=== PATIENT | male | born 1945 | race Caucasian/White ===

== ENCOUNTER 2017-10-27 14:20 | Emergency (ER) | payer MEDICARE, OTHER ==
--- NOTE | 2017-10-27 14:28 | EDM.PDOC ---
ED HPI GENERAL MEDICAL PROBLEM - General Chief Complaint: Lower Extremity Injury/Pain Stated Complaint: KNEE INJURY, [id number] Time Seen by Provider: 10/27/17 14:28 Source of Information: Reports: Patient, RN, RN Notes Reviewed History Limitations: Reports: No Limitations - History of Present Illness INITIAL COMMENTS - FREE TEXT/NARRATIVE: Arrives by POV with c/o of Rt knee pain sustained [employer] when pt slipped on the ice while shoveling snow. Denies hitting his head, and denies any other injury. Onset: Today, Sudden Duration: Constant Location: Reports: Lower Extremity, Right Quality: Reports: Ache Severity: Moderate Improves with: Reports: None Worsens with: Reports: Movement Associated Symptoms: Reports: No Other Symptoms Right Knee Pain Score (Numeric/FACES): 2 - Related Data Allergies Allergy/AdvReac Type Severity Reaction Status Date / Time naproxen sodium [From Aleve] Allergy Rash Verified 12/24/14 09:15 Home Meds: Home Meds Levothyroxine 150 mcg PO DAILY 12/24/14 [History] Sulfamethoxazole/Trimethoprim [Septra DS] 1 tab PO DAILY 12/24/14 [History] amLODIPine Besylate [Amlodipine Besylate] 5 mg PO DAILY 12/24/14 [History] atorvaSTATin Calcium [Atorvastatin Calcium] 40 mg PO BEDTIME 10/27/17 [History] Past Medical History Cardiovascular History: Reports: High Cholesterol, Hypertension Musculoskeletal History: Reports: Osteoarthritis, Other (See Below) ( postoperative Rt knee infection s/p TKR) Endocrine/Metabolic History: Reports: Hypothyroidism, Obesity/BMI 30+ - Past Surgical History Musculoskeletal Surgical History: Reports: Knee Replacement (Rt x2, Left x1), ORIF (ankle) Social & Family History - Family History Family Medical History: Noncontributory - Tobacco Use Smoking Status *Q: Never Smoker Second Hand Smoke Exposure: No - Alcohol Use Days Per Week of Alcohol Use: 0 - Recreational Drug Use Recreational Drug Use: No - Living Situation & Occupation Living situation: Reports: , with Spouse Occupation: Retired Review of Systems - Review of Systems Review Of Systems: ROS reveals no pertinent complaints other than HPI. ED EXAM, GENERAL - Physical Exam Exam: See Below Exam Limited By: No Limitations General Appearance: Alert, WD/WN, No Apparent Distress Head: Atraumatic, Normocephalic Neck: Normal Inspection Respiratory/Chest: No Respiratory Distress Cardiovascular: Normal Peripheral Pulses, Regular Rate, Rhythm GI/Abdominal: Normal Bowel Sounds, Soft, Non-Tender, No Distention (Male) Exam: Deferred Rectal (Males) Exam: Deferred Back Exam: Normal Inspection, Full Range of Motion Extremities: Normal Capillary Refill, Pedal Edema (chronic/stable per pt.), Limited Range of Motion (Rt knee with mild generalized swelling, no increased warmth, no erythema, no visible bruising or deformity, skin is intact) Neurological: Alert, Oriented, CN II-XII Intact, Normal Cognition, No Motor/ Sensory Deficits Psychiatric: Normal Affect, Normal Mood Skin Exam: Warm, Dry, Intact, Normal Color, No Rash ED TRAUMA EXTREMITY PROCEDURES - Splinting Right Lower Extremity Splint Site: Rt knee Pre-Procedure NV Status: Normal Post-Procedure NV Status: Normal Splint Material: Velcro Splint Design: Knee Immobilizer Applied & Form Fitted By: Nurse Provider Post-Splint Application NV Check: NV Status Normal, Good Position Complications: No Course - Vital Signs Last Recorded V/S: Last Vital Signs Temp 36.8 C 10/27/17 14:33 Pulse 66 10/27/17 14:33 Resp 18 10/27/17 14:33 BP 139/71 10/27/17 14:33 Pulse Ox 100 10/27/17 14:33 - Orders/Labs/Meds Orders: Active Orders 24 hr Category Date Time Status Immobilizer [RC] ASDIRECTED Care 10/27/17 14:57 Active Peripheral IV Care [RC] . DIRECTED Care 10/27/17 15:48 Active Femur Min 2V Rt [CR] Stat Exams 10/27/17 15:44 Ordered Hip Min 2V or 3V w Pelvis Rt [CR] Stat Exams 10/27/17 14:38 Stop Req Sodium Chloride 0.9% [Saline Flush] Med 10/27/17 15:48 Active 10 ml FLUSH ASDIRECTED PRN Peripheral IV Insertion Adult [OM.PC] Stat Oth 10/27/17 15:47 Ordered Medication Orders Sodium Chloride (Saline Flush) 10 ml FLUSH ASDIRECTED PRN PRN Reason: Keep Vein Open Meds: Medications Generic Name Dose Route Start Last Admin Trade Name Freq PRN Reason Stop Dose Admin Sodium Chloride 10 ml 10/27/17 15:48 Saline Flush FLUSH ASDIRECTED PRN Keep Vein Open Discontinued Medications Generic Name Dose Route Start Last Admin Trade Name Elioq PRN Reason Stop Dose Admin Hydromorphone HCl 1 mg 10/27/17 15:48 Dilaudid IVPUSH 10/27/17 15:49 ONETIME ONE Ondansetron HCl 4 mg 10/27/17 15:48 Zofran IV 10/27/17 15:49 ONETIME ONE Departure - Departure Time of Disposition: 15:53 Disposition: DC/Tfer to Acute Hospital 02 Condition: Fair Clinical Impression: [place]-prosthetic fracture around prosthetic knee Qualifiers: Encounter type: initial encounter Laterality: right Qualified Code(s): M97.11XA - Periprosthetic fracture around internal prosthetic right knee joint, initial encounter; T84.042A - Periprosthetic fracture around internal prosthetic right knee joint, initial encounter Closed fracture of distal end of right femur Qualifiers: Encounter type: initial encounter Fracture morphology: other fracture Qualified Code(s): S72.491A - Other fracture of lower end of right femur, initial encounter for closed fracture - Discharge Information Forms: ED Department Discharge, Interfacility Transfer EMTALA - My Orders Last 24 Hours: My Active Orders 10/27/17 14:38 Hip Min 2V or 3V w Pelvis Rt [CR] Stat 10/27/17 14:57 Immobilizer [RC] ASDIRECTED 10/27/17 15:44 Femur Min 2V Rt [CR] Stat 10/27/17 15:47 Peripheral IV Insertion Adult [OM.PC] Stat 10/27/17 15:48 Peripheral IV Care [RC] . DIRECTED Sodium Chloride 0.9% [Saline Flush] 10 ml FLUSH ASDIRECTED PRN - Assessment/Plan Last 24 Hours: My Active Orders 10/27/17 14:38 Hip Min 2V or 3V w Pelvis Rt [CR] Stat 10/27/17 14:57 Immobilizer [RC] ASDIRECTED 10/27/17 15:44 Femur Min 2V Rt [CR] Stat 10/27/17 15:47 Peripheral IV Insertion Adult [OM.PC] Stat 10/27/17 15:48 Peripheral IV Care [RC] . DIRECTED Sodium Chloride 0.9% [Saline Flush] 10 ml FLUSH ASDIRECTED PRN
[2017-10-27] MEDS ORDERED: Sodium Chloride 0.9% 10 ML Syringe FLUSH PRN (15:48)
[2017-10-27] MEDS ORDERED: HYDROmorphone 1 MG/ML Syringe IVPUSH ONE (15:48)
[2017-10-27] MEDS ORDERED: Ondansetron 4 MG/2 ML SDV IV ONE (15:48)
[2017-10-27 15:52] VITALS: BP 150/80
== END 2017-10-27 16:20 ==
LOC: DL.ED 14:20
DX: S72.491A Other fracture of lower end of right femur, initial encounter for closed fracture (principal); M97.11XA Periprosthetic fracture around internal prosthetic right knee joint, initial encounter; I10 Essential (primary) hypertension; E78.00 Pure hypercholesterolemia, unspecified; E03.9 Hypothyroidism, unspecified; Z79.899 Other long term (current) drug therapy; Z88.8 Allergy status to other drugs, medicaments and biological substances; Z96.653 Presence of artificial knee joint, bilateral; W18.49XA Other slipping, tripping and stumbling without falling, initial encounter; Y93.H1 Activity, digging, shoveling and raking
CPT/HCPCS: 73552; 73560; 96374; 96375; 99283; J1170; J2405; J7050

== ENCOUNTER 2018-11-16 08:50 | Emergency (ER) | payer MEDICARE, OTHER ==
--- NOTE | 2018-11-16 09:08 | EDM.PDOC ---
ED HPI GENERAL MEDICAL PROBLEM - General Chief Complaint: Back Pain or Injury Stated Complaint: FELL ON ICE,HURT RIBS [id number] Time Seen by Provider: 11/16/18 09:07 Source of Information: Reports: Patient, RN, RN Notes Reviewed History Limitations: Reports: No Limitations - History of Present Illness INITIAL COMMENTS - FREE TEXT/NARRATIVE: Pt presents to ER from home by POV with c/o left rib pain sustained 3 days ago when he fell on the ice. Denies any other injury. No fevers or chills. Admits to mild dry cough. Onset Date: 11/13/18 Duration: Constant Location: Reports: Chest Quality: Reports: Ache Severity: Severe Improves with: Reports: None Worsens with: Reports: None Associated Symptoms: Reports: No Other Symptoms - Related Data Allergies Allergy/AdvReac Type Severity Reaction Status Date / Time naproxen sodium [From Aleve] Allergy Rash Verified 09/01/18 08:36 Home Meds: Home Meds Levothyroxine 150 mcg PO DAILY 12/24/14 [History] amLODIPine Besylate [Amlodipine Besylate] 5 mg PO DAILY 12/24/14 [History] atorvaSTATin Calcium [Atorvastatin Calcium] 40 mg PO BEDTIME 10/27/17 [History] Past Medical History HEENT History: Reports: Impaired Vision Other HEENT History: Impaired vision to right eye, cannot see out of right eye. Wears glasses. Cardiovascular History: Reports: High Cholesterol, Hypertension Respiratory History: Reports: None Gastrointestinal History: Reports: None Genitourinary History: Reports: None Musculoskeletal History: Reports: Osteoarthritis, Other (See Below) ( postoperative Rt knee infection s/p TKR) Neurological History: Reports: None Psychiatric History: Reports: None Endocrine/Metabolic History: Reports: Hypothyroidism, Obesity/BMI 30+ Other Endocrine/Metabolic History: left ankle fusion Hematologic History: Reports: Blood Transfusion(s) Other Hematologic History: years ago Immunologic History: Reports: None Oncologic (Cancer) History: Reports: Lymphoma Dermatologic History: Reports: Eczema - Past Surgical History Musculoskeletal Surgical History: Reports: Knee Replacement (Rt x2, Left x1), ORIF (ankle) Social & Family History - Family History Family Medical History: Noncontributory - Tobacco Use Smoking Status *Q: Never Smoker - Alcohol Use Alcohol Use History: Yes Alcohol Use Frequency: Socially - Living Situation & Occupation Living situation: Reports: , with Spouse Occupation: Retired ED ROS GENERAL - Review of Systems Review Of Systems: ROS reveals no pertinent complaints other than HPI. ED EXAM, GENERAL - Physical Exam Exam: See Below Exam Limited By: No Limitations General Appearance: Alert, WD/WN, No Apparent Distress Throat/Mouth: Normal Inspection Head: Atraumatic, Normocephalic Neck: Normal Inspection, Supple, Non-Tender, Full Range of Motion Respiratory/Chest: No Respiratory Distress, No Accessory Muscle Use, Decreased Breath Sounds (diminished at left base), Splinting (left), Other (left lateral lower chest wall tenderness without visible bruising, swelling, or deformity, no palpable sonia crepitus). No: Crackles, Rales, Rhonchi, Wheezing Cardiovascular: Regular Rate, Rhythm GI/Abdominal: Normal Bowel Sounds, Soft, Non-Tender Back Exam: Normal Inspection. No: CVA Tenderness (L), CVA Tenderness (R) Extremities: Normal Inspection, Normal Range of Motion Neurological: Alert, Oriented, No Motor/Sensory Deficits Psychiatric: Normal Mood Skin Exam: Warm, Dry, Intact, Normal Color, No Rash Course - Vital Signs Last Recorded V/S: Last Vital Signs Temp 36.9 C 11/16/18 08:57 Pulse 75 11/16/18 08:57 Resp 18 11/16/18 08:57 BP 145/69 H 11/16/18 08:57 Pulse Ox 97 11/16/18 08:57 - Orders/Labs/Meds Orders: Active Orders 24 hr Category Date Time Status Incentive Breathing [RT Incentive Spirometry] [RC] Care 11/16/18 09:41 Active ASDIRECTED - Radiology Interpretation Free Text/Narrative:: XR Left ribs: no obvious fractures, small pleural effusion at left base. Departure - Departure Time of Disposition: 09:41 Disposition: Home, Self-Care 01 Condition: Good Clinical Impression: Pleural effusion, left Chest wall contusion Qualifiers: Encounter type: initial encounter Laterality: left Qualified Code(s): S20.212A - Contusion of left front wall of thorax, initial encounter - Discharge Information *PRESCRIPTION DRUG MONITORING PROGRAM REVIEWED*: Not Applicable *COPY OF PRESCRIPTION DRUG MONITORING REPORT IN PATIENT MARIBELL: Not Applicable Instructions: Pleural Effusion, Rib Contusion Forms: ED Department Discharge Additional Instructions: Use incentive spirometer every hour while awake as instructed by the respiratory therapist. Ice packs to area of rib pain as needed. Follow up in clinic if not improving as expected in the next 10 days. Return to ER if any fevers or difficulty breathing develop. - My Orders Last 24 Hours: My Active Orders 11/16/18 09:41 Incentive Breathing [RT Incentive Spirometry] [RC] ASDIRECTED - Assessment/Plan Last 24 Hours: My Active Orders 11/16/18 09:41 Incentive Breathing [RT Incentive Spirometry] [RC] ASDIRECTED
--- NOTE | 2018-11-16 09:26 | CR ---
Clinical history: 73-year-old male left "rib pain" associated with fall (abnormal breath sounds on the left). Interpretation: PA chest and 2 oblique left rib detail films confirm some *new blunting (effusion) left costophrenic sulcus with underlying atelectasis since 01 September 2018 film. No rib fracture clearly seen although this remains a distinct differential possibility. No pneumothorax. Normal cardiac silhouette without cephalization of vascular flow or alveolar edema in the right lung bases clear. (Supraclavicular central venous line unchanged) No new lung mass or other focal lobar consolidation. 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 Scoliosis and hypertrophic arthritis spine. CONCLUSION: Suspicious.
[2018-11-16 09:35] VITALS: BP 145/69
== END 2018-11-16 09:55 | disposition home or self-care (01) ==
LOC: DL.ED 08:50
DX: S20.212A Contusion of left front wall of thorax, initial encounter (principal); J90 Pleural effusion, not elsewhere classified; I10 Essential (primary) hypertension; Z88.8 Allergy status to other drugs, medicaments and biological substances; E78.00 Pure hypercholesterolemia, unspecified; W00.0XXA Fall on same level due to ice and snow, initial encounter
CPT/HCPCS: 71101-LT; 94010; 99283

== ENCOUNTER 2019-08-07 06:17 | Day surgery (SDC) | payer MEDICARE, OTHER ==
[~2019-08-07 06:17] MED LIST: Midazolam 1 MG/ML 2 ML SDV ONE; fentaNYL 100 MCG/2 ML SDV ONE
[2019-08-07] MEDS ORDERED: fentaNYL 100 MCG/2 ML SDV IV ONE ×3 (06:18→07:41)
[2019-08-07] MEDS ORDERED: Midazolam 1 MG/ML 2 ML SDV IV ONE ×5 (06:18→07:46)
[2019-08-07] MEDS ORDERED: Sodium Chloride 0.9% 10 ML Syringe FLUSH PRN (08:00)
[2019-08-07] MEDS ORDERED: Dextrose 5%-0.45% NaCl 1,000 ML IV SCH (08:00)
[2019-08-07 10:13] VITALS: BP 143/73; PULSE 57
--- NOTE | 2019-08-07 14:03 | OR ---
DATE: 08/07/2019 PROCEDURE: Total colonoscopy. INSTRUMENT USED: [id number]-[id number] Olympus video colonoscope. PREMEDICATIONS: Fentanyl 100 mcg intravenous, Versed 3 mg intravenous, nasal O2 cannula. The procedure was done under pulse oximetry, BP recording, and communications systems engineer. INDICATION: Screening colonoscopic examination is done for detection of any polypoid lesions and removal, endoscopic hemostasis therapy if needed. DESCRIPTION OF PROCEDURE: Initial rectal exam was unremarkable. Rigid anoscopy showed small internal hemorrhoids without bleeding from them. The colonoscope was passed with ease. Numerous scattered diverticula were noted in the distal left colon along with deformity. The scope was passed with ease to the ileocecal area. Photographs were taken of the normal-appearing cecum, identified by landmarks of appendiceal orifice and double-bulged ileocecal folds. No bleeding was noted from any of the visualized areas at the commencement of the examination. The bowel preparation was found to be adequate, Rowlett scale 2 in all the regions. No stricture, no vascular ectasia, no large isolated ulcerations seen. No evidence of diffuse inflammatory bowel disease in the form of friability, contact bleeding, or ulcerations. No polyp or tumor mass identified. Probing the proximal sides of folds and flexures using adequate distention and clearing of the stool material, withdrawal of the scope was made, cecum to rectum time over 6 minutes. No bleeding was noted from any of the visualized areas at the completion of examination. IMPRESSION: 1. Internal hemorrhoids. 2. Diverticulosis. The patient tolerated the procedure well. [facility] /[id number]
== END 2019-08-07 09:51 | disposition home or self-care (01) ==
LOC: DL.ENDO 06:17
PROVIDERS: ATTEND Internal Medicine Gastroenterology
DX: Z12.11 Encounter for screening for malignant neoplasm of colon (principal); K57.30 Diverticulosis of large intestine without perforation or abscess without bleeding; K64.8 Other hemorrhoids; K21.9 Gastro-esophageal reflux disease without esophagitis; I10 Essential (primary) hypertension; E78.00 Pure hypercholesterolemia, unspecified; E03.9 Hypothyroidism, unspecified; E66.09 Other obesity due to excess calories; Z68.33 Body mass index [BMI] 33.0-33.9, adult; Z88.6 Allergy status to analgesic agent; Z91.048 Other nonmedicinal substance allergy status
CPT/HCPCS: G0121; J2250; J3010; J7042

== ENCOUNTER 2020-01-10 05:50 | Day surgery (SDC) | payer MEDICARE, OTHER ==
[2020-01-10] MEDS ORDERED: Propofol 200 MG/20 ML SDV IV ONE (05:51)
[2020-01-10] MEDS ORDERED: Lidocaine 1% 30 ML SDV INJECT ONE ×4 (05:51→07:58)
[2020-01-10] MEDS ORDERED: Bupivacaine 0.5% 30 ML SDV INJECT ONE ×4 (05:51→07:58)
[2020-01-10] MEDS ORDERED: Midazolam 1 MG/ML 2 ML SDV IV ONE (05:51)
[2020-01-10] MEDS ORDERED: fentaNYL 100 MCG/2 ML SDV IV ONE (05:51)
[2020-01-10] MEDS ORDERED: Ondansetron 4 MG/2 ML SDV IV ONE (05:51)
[2020-01-10] MEDS ORDERED: Lidocaine 1% 30 ML SDV ONE (06:18)
[2020-01-10] MEDS ORDERED: Bupivacaine 0.5% 30 ML SDV ONE (06:18)
[2020-01-10] MEDS ORDERED: Sodium Chloride 0.9% 10 ML Syringe FLUSH PRN (06:44)
[2020-01-10] MEDS ORDERED: ceFAZolin 2 GM in Premix Bag 1 BAG IV ONE (06:44)
[2020-01-10] MEDS ORDERED: Lactated Ringers 1,000 ML IV SCH (06:45)
[2020-01-10] MEDS ORDERED: Acetaminophen/oxyCODONE 325-5 MG Tab PO PRN (08:45)
[2020-01-10 09:35] VITALS: BP 131/71; PULSE 61
--- NOTE | 2020-01-10 10:21 | PCM.OPNOTE ---
- General Post-Op/Procedure Note Date of Surgery/Procedure: 01/10/20 Operative Procedure(s): left foot 5th metatarsal bone spur excision and 5th digit proximal phalanx chondylectomy Pre Op Diagnosis: left foot painful bone spur 5th metatarsal and 5th digit with overlying calluses Post-Op Diagnosis: sandy Anesthesia Technique: Local, MAC Primary Surgeon: Tamika Escalona Anesthesia Provider: Memo Chiang EBL in mLs: 5 Complications: none Condition: Stable Free Text/Narrative:: Intake & Output 01/09/20 01/10/20 01/10/20 22:59 06:59 14:59 Intake Total 650 Balance 650 Pt tolerated procedure well and was transported to recovery with vascular status intact to left foot and toes. Well padded compression dressing applied to left foot.
--- NOTE | 2020-01-13 01:56 | OR ---
DATE: 01/10/2020 PREOPERATIVE DIAGNOSES: 1. Left foot bony prominence of the 5th metatarsal, painful. 2. Left foot 5th digit bone spur. POSTOPERATIVE DIAGNOSES: 1. Left foot bony prominence of the 5th metatarsal, painful. 2. Left foot 5th digit bone spur. PROCEDURE PERFORMED: 1. Left foot 5th metatarsal base ostectomy. 2. Left foot 5th digit partial condylectomy of the proximal head of the phalanx, 5th toe. ANESTHESIA: Local MAC with preoperative local block of 10 mL, 1:1 mixture of 1% lidocaine plain, and 0.5% Marcaine plain. TOURNIQUET TIME: 43 minutes. Pneumatic ankle tourniquet. ESTIMATED BLOOD LOSS: Minimal. SPECIMEN: None. COMPLICATIONS: None. INDICATIONS: Mikey is a 74-year-old male who presents with painful calluses on the outside of his left foot and also at the 5th toe. He has history of ankle and subtalar joint fusion. States that after the fusion, he started developing a painful callus to both of those areas. Feels like he is walking more on the outside of his foot and he thinks this is what is causing those painful calluses. He has tried multiple different inserts and offloading to the areas with no relief. He also has been getting different shoes every few months with no relief. We have tried trimming these down for him, but they grow back very quickly. X-rays of the left foot reveal prominence of the 5th metatarsal base with bone spurring present, prominence at the 5th digit head of the proximal phalanx. Screws intact to the fusion site, which appear well healed. The patient voiced good understanding of the proposed procedure and possible complications and elected to have surgery at this time. DESCRIPTION OF PROCEDURE: The patient was taken to the operating room, lying in supine position. After adequate anesthesia induction as described above, the left foot was prepped and draped in the usual sterile fashion. A pneumatic ankle tourniquet was inflated to 225 mmHg. Attention was first directed to the lateral left foot overlying the bony prominence of the base of the 5th metatarsal bone. There was a large hyperkeratotic lesion overlying this area. Incision was made just dorsal to that callused area. Sharp and blunt dissection was performed down to the level of the 5th metatarsal base at the bony prominence, being careful to retract all neurovascular structures. The bony prominence was identified and just a very small portion of the peroneal brevis tendon was detached from the area, only approximately 5%. A sagittal saw was used to remove the bony prominence at the lateral plantar aspect of the 5th metatarsal base. Rongeur and bone rasp were used to smooth all rough edges. Fluoroscopy was used to verify adequate resection of the bony prominence as well as palpation. The area was irrigated with copious amounts of sterile saline. The tendon was reattached with 3-0 Vicryl. Deep closure was completed with 3-0 Vicryl and skin closure was completed with 4-0 nylon. Attention was then directed to the 5th digit of the left foot, where a small incision was made overlying the proximal phalanx head. Sharp and blunt dissection was performed down to level of the tendon capsule of the interphalangeal joint with care to retract all vascular structures. A capsulotomy tenotomy was made at the interphalangeal joint and the head of the proximal phalanx was identified. There was noted to be a large prominent eminence at the lateral aspect and this was removed with a sagittal saw. The area was smoothed down with bone rasp. Fluoroscopy was again used to verify adequate resection of the bony prominence. The area was then irrigated with copious amounts of sterile saline. The tendon was repaired with 3-0 Vicryl and skin closure was completed with 4-0 nylon. The areas were dressed with Xeroform to incision sites, fluffs, Webril, and Johnny wrap. The patient tolerated anesthesia and the procedure well and was transferred to recovery room with vascular status intact as noted by immediate hyperemia to all digits upon deflation of the ankle tourniquet. The patient was then discharged home once he met hospital discharge requirements. [facility] /[id number]
== END 2020-01-10 09:45 | disposition home or self-care (01) ==
LOC: DL.SDS 05:50
PROVIDERS: ATTEND Podiatrist
DX: M77.42 Metatarsalgia, left foot (principal); M77.52 Other enthesopathy of left foot and ankle; I10 Essential (primary) hypertension; E78.00 Pure hypercholesterolemia, unspecified; E03.9 Hypothyroidism, unspecified; Z88.8 Allergy status to other drugs, medicaments and biological substances
CPT/HCPCS: 28122; 28124; J0690; J1642; J2001; J3490; J7120; 01480; J2250; J2405; J2704; J3010

== ENCOUNTER 2021-05-20 17:29 | Emergency (ER) | payer MEDICARE, OTHER ==
[2021-05-20] MEDS ORDERED: Acetaminophen/HYDROcodone 325-5 MG Tab PO ONE (17:30)
[2021-05-20 18:40] VITALS: BP 118/53; PULSE 77
--- NOTE | 2021-05-20 19:10 | CR ---
PROCEDURE INFORMATION: Exam: XR Left Shoulder Exam date and time: 05/20/2021 6:45 PM Age: 75 years old Clinical indication: Other: Pain; Additional info: Left shoulder pain due to lifting a compressor TECHNIQUE: Imaging protocol: XR Left shoulder. Views: 2 or more views. COMPARISON: No relevant prior studies available. FINDINGS: Bones/joints: Moderate degenerative changes in the glenohumeral joint. The left humeral head is high riding suggesting rotator cuff disease. Mild degenerative changes in the left AC joint. Two views. No evidence of fracture. Soft tissues: Normal. IMPRESSION: Moderate degenerative arthritis
[2021-05-20] MEDS ORDERED: Acetaminophen/HYDROcodone 325-10 MG Tab PO ONE (19:20)
--- NOTE | 2021-05-20 19:35 | EDM.PDOC ---
ED HPI GENERAL MEDICAL PROBLEM - General Chief Complaint: Upper Extremity Injury/Pain Stated Complaint: LEFT SHOULDER PAIN Time Seen by Provider: 05/20/21 19:10 Source of Information: Reports: Patient History Limitations: Reports: No Limitations - History of Present Illness INITIAL COMMENTS - FREE TEXT/NARRATIVE: ED with c/o to left shoulder since yesterday while attempting to lift air compressor from ground to wait level, Difficulty sleeping last night, Was not seen in clinic today, Tylenol sometime in afternoon. No numbness or tingling, pain worse withminimal movment. N prior injury to shoulder. Left Shoulder Pain Score (Numeric/FACES): 10 - Related Data Allergies Allergy/AdvReac Type Severity Reaction Status Date / Time silver Allergy Other Verified 01/10/20 06:09 Providone Iodine Allergy Other Uncoded 01/10/20 06:09 steri strips Allergy Blisters Uncoded 01/10/20 06:09 Tegaderm Allergy Blisters Uncoded 01/10/20 06:09 Home Meds: Home Meds Levothyroxine 150 mcg PO DAILY 12/24/14 [History] atorvaSTATin Calcium [Atorvastatin Calcium] 40 mg PO BEDTIME 10/27/17 [History] Acetaminophen [Tylenol] 650 mg PO Q6H 01/08/20 [History] Ibuprofen 200 mg PO Q8H PRN 01/08/20 [History] Metoprolol Tartrate 50 mg PO DAILY 01/08/20 [History] Past Medical History HEENT History: Reports: Impaired Vision Other HEENT History: Impaired vision to right eye, cannot see out of right eye. Wears glasses. Cardiovascular History: Reports: High Cholesterol, Hypertension Respiratory History: Reports: None Gastrointestinal History: Reports: PUD Genitourinary History: Reports: None Musculoskeletal History: Reports: Arthritis, Fracture, Osteoarthritis, Other (See Below) Neurological History: Reports: None Psychiatric History: Reports: None Endocrine/Metabolic History: Reports: Hypothyroidism, Obesity/BMI 30+ Other Endocrine/Metabolic History: left ankle fusion Hematologic History: Reports: Blood Transfusion(s) Other Hematologic History: years ago Immunologic History: Reports: None Oncologic (Cancer) History: Reports: Lymphoma Dermatologic History: Reports: Eczema - Infectious Disease History Infectious Disease History: Reports: Chicken Pox, Measles, Mumps - Past Surgical History Head Surgeries/Procedures: Reports: None HEENT Surgical History: Reports: Cataract Surgery, Other (See Below) Other HEENT Surgeries/Procedures: lens to right eye but had to have it removed. Cardiovascular Surgical History: Reports: None Respiratory Surgical History: Reports: None GI Surgical History: Reports: Colonoscopy, EGD Male Surgical History: Reports: None Musculoskeletal Surgical History: Reports: Knee Replacement, ORIF Other Oncologic Surgeries/Procedures: continues to be part of a study and gets bone marrow biopsies. Is in remission Social & Family History - Family History Family Medical History: No Pertinent Family History - Tobacco Use Tobacco Use Status *Q: Never Tobacco User Second Hand Smoke Exposure: No - Caffeine Use Caffeine Use: Reports: Coffee Caffeine Use Comment: 1 cup daily - Recreational Drug Use Recreational Drug Use: No - Living Situation & Occupation Living situation: Reports: , with Spouse Occupation: Retired Review of Systems - Review of Systems Review Of Systems: Comprehensive ROS is negative, except as noted in HPI. ED EXAM, GENERAL - Physical Exam Exam: See Below Exam Limited By: No Limitations General Appearance: Alert, Moderate Distress Eye Exam: Bilateral Eye: EOMI Ears: Normal External Exam, Hearing Loss Nose: Normal Inspection Throat/Mouth: Normal Inspection, Normal Voice Head: Atraumatic, Normocephalic Neck: Normal Inspection, Full Range of Motion Respiratory/Chest: No Respiratory Distress, Lungs Clear, Normal Breath Sounds Cardiovascular: Regular Rate, Rhythm GI/Abdominal: Normal Bowel Sounds, Soft Extremities: Limited Range of Motion (left shoulder, no gross deformity ), Increased Warmth. No: Normal Range of Motion Neurological: Alert, Oriented, Normal Cognition Course - Vital Signs Last Recorded V/S: Last Vital Signs Temp 97.9 F 05/20/21 18:34 Pulse 77 05/20/21 18:34 Resp 18 05/20/21 18:34 BP 118/53 L 05/20/21 18:34 Pulse Ox 97 05/20/21 18:34 - Orders/Labs/Meds Meds: Medications Discontinued Medications Generic Name Dose Route Start Last Admin Trade Name Sanam PRN Reason Stop Dose Admin Hydrocodone Bitart/Acetaminophen 1 tab 05/20/21 19:20 05/20/21 19:36 Acetaminophen/Hydrocodone 325-10 Mg Tab PO 05/20/21 19:21 1 tab ONETIME ONE Administration Hydrocodone Bitart/Acetaminophen Confirm 05/20/21 19:37 05/20/21 19:46 Acetaminophen/Hydrocodone 325-5 Mg Tab Administered 05/20/21 19:38 Not Given Dose 2 tab .ROUTE .STK-MED ONE - Re-Assessments/Exams Free Text/Narrative Re-Assessment/Exam: 05/21/21 01:52 Pain improved with placement of sling. Results of imaging discussed with patient and . Instructed to follow up with PCP and set of physical therapy. Departure - Departure Time of Disposition: 19:35 Disposition: Home, Self-Care 01 Condition: Good Clinical Impression: Left shoulder strain Qualifiers: Encounter type: initial encounter Qualified Code(s): S46.912A - Strain of unspecified muscle, fascia and tendon at shoulder and upper arm level, left arm, initial encounter - Discharge Information *PRESCRIPTION DRUG MONITORING PROGRAM REVIEWED*: No *COPY OF PRESCRIPTION DRUG MONITORING REPORT IN PATIENT MARIBELL: No Instructions: Shoulder Pain, [id number] Forms: ED Department Discharge Additional Instructions: ice rest sling tylenol 500mg every 4 hours as needed for mild- moderate discomfort Hydrocodone Apap 5/325 one every 6 hours as needed for severe discomfort physical therapy clinic follow up next week contact clinic tommorow if pain medication not effective Sepsis Event Note (ED) - Evaluation Sepsis Screening Result: No Definite Risk - Focused Exam Vital Signs: Vital Signs Temp Pulse Resp BP Pulse Ox 05/20/21 18:34 97.9 F 77 18 118/53 L 97
[2021-05-20] MEDS ORDERED: Acetaminophen/HYDROcodone 325-5 MG Tab ONE (19:37)
== END 2021-05-20 19:45 | disposition home or self-care (01) ==
LOC: DL.ED 17:29
DX: S46.912A Strain of unspecified muscle, fascia and tendon at shoulder and upper arm level, left arm, initial encounter (principal); E78.00 Pure hypercholesterolemia, unspecified; I10 Essential (primary) hypertension; E03.9 Hypothyroidism, unspecified; E66.9 Obesity, unspecified; Z68.29 Body mass index [BMI] 29.0-29.9, adult; Z79.899 Other long term (current) drug therapy; Z91.09 Other allergy status, other than to drugs and biological substances; Z91.048 Other nonmedicinal substance allergy status; Z88.8 Allergy status to other drugs, medicaments and biological substances; X50.0XXA Overexertion from strenuous movement or load, initial encounter
CPT/HCPCS: 73030; 99283; A9270

== ENCOUNTER 2022-09-24 08:53 | Emergency (ER) | payer MEDICARE, OTHER ==
[2022-09-24 09:07] VITALS: BP 159/99; PULSE 67
[2022-09-24 09:42] LABS: ANION GAP 12.4 mEq/L (7-13)
== END 2022-09-24 11:13 | disposition home or self-care (01) ==
LOC: DL.ED 08:53
DX: R55 Syncope and collapse (principal); E78.00 Pure hypercholesterolemia, unspecified; I10 Essential (primary) hypertension; E03.9 Hypothyroidism, unspecified; E66.9 Obesity, unspecified; Z68.30 Body mass index [BMI] 30.0-30.9, adult; Z91.048 Other nonmedicinal substance allergy status
CPT/HCPCS: 36415; 70450; 70486; 71045; 80053; 81001; 83605; 84443; 84484; 85025; 93005; 99284

== ENCOUNTER 2022-11-14 13:07 | Emergency (ER) | payer MEDICARE, OTHER ==
[2022-11-14] MEDS ORDERED: Sodium Chloride 0.9% 10 ML Syringe FLUSH PRN (13:18)
[2022-11-14 13:57] LABS: ANION GAP 12.4 mEq/L (7-13); CHLORIDE,CL 102 mmol/L (98-107); SODIUM,NA 139 mmol/L (136-145)
[2022-11-14 13:59] LABS: PTT,PARTIAL THROMBOPLSTIN TIME 26.6 SEC (22.0-34.0)
[2022-11-14 14:07] LABS: ESTIMATED GFR 88 mL/min (>=60)
[2022-11-14 14:34] VITALS: BP 157/85; PULSE 63
== END 2022-11-14 14:42 | disposition home or self-care (01) ==
LOC: DL.ED 13:07
DX: R00.0 Tachycardia, unspecified (principal); E78.00 Pure hypercholesterolemia, unspecified; I10 Essential (primary) hypertension; E66.9 Obesity, unspecified; Z68.31 Body mass index [BMI] 31.0-31.9, adult; Z02.89 Encounter for other administrative examinations; Z91.048 Other nonmedicinal substance allergy status; Z91.041 Radiographic dye allergy status; Z79.899 Other long term (current) drug therapy; Z20.822 Contact with and (suspected) exposure to COVID-19
CPT/HCPCS: 36415; 71045; 80053; 83735; 84484; 85025; 85610; 85730; 87804; 93005; 99283; J1642; J3490; U0002

== ENCOUNTER 2022-11-17 08:22 | Emergency (ER) | payer MEDICARE, OTHER ==
[2022-11-17 10:11] VITALS: BP 158/98; PULSE 58
== END 2022-11-17 10:20 | disposition home or self-care (01) ==
LOC: DL.ED 08:22
DX: S20.212A Contusion of left front wall of thorax, initial encounter (principal); E78.00 Pure hypercholesterolemia, unspecified; I10 Essential (primary) hypertension; E03.9 Hypothyroidism, unspecified; E66.9 Obesity, unspecified; Z68.30 Body mass index [BMI] 30.0-30.9, adult; Z91.048 Other nonmedicinal substance allergy status; Z88.8 Allergy status to other drugs, medicaments and biological substances; Z86.73 Personal history of transient ischemic attack (TIA), and cerebral infarction without residual deficits; Z79.899 Other long term (current) drug therapy; Z86.16 Personal history of COVID-19; W19.XXXA Unspecified fall, initial encounter
CPT/HCPCS: 71101-RT; 94010; 99283